=== PATIENT | female | born 1990 | race Caucasian/White ===

== ENCOUNTER 2019-02-16 17:25 | Emergency (ER) | payer OTHER ==
[~2019-02-16] VITALS: Ht 165.1 cm; Wt 63.0 kg
[2019-02-16 17:26] VITALS: BP 118/80
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
== END 2019-02-16 18:25 | disposition home or self-care (01) ==
LOC: ED 18:09
DX: H10.33 Unspecified acute conjunctivitis, bilateral (principal); F17.200 Nicotine dependence, unspecified, uncomplicated
CPT/HCPCS: 99283

== ENCOUNTER 2019-10-24 13:17 | Emergency (ER) | payer MEDICAID ==
[~2019-10-24] VITALS: Ht 162.6 cm; Wt 62.0 kg
[2019-10-24 13:28] VITALS: BP 100/62
--- NOTE | 2019-10-24 14:22 | NUR ---
NL X 1 @ [id number].
--- NOTE | 2019-10-24 14:30 | NUR ---
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
--- NOTE | 2019-10-24 14:31 | NUR ---
NOT IN LOBBY X 2 [phone], [phone]
== END 2019-10-24 14:46 | disposition left against medical advice (07) ==
LOC: ED 14:35
DX: N63.0 Unspecified lump in unspecified breast (principal); Z53.21 Procedure and treatment not carried out due to patient leaving prior to being seen by health care provider

== ENCOUNTER 2019-12-18 20:24 | Outpatient (CLI) | payer MEDICAID ==
[2019-12-18 21:15] VITALS: BP 113/64
== END 2019-12-18 21:40 | disposition home or self-care (01) ==
LOC: LDOP 20:24
PROVIDERS: ATTEND Obstetrics & Gynecology
DX: O26.899 Other specified pregnancy related conditions, unspecified trimester (principal)
CPT/HCPCS: 99211; G0463

== ENCOUNTER 2019-12-18 21:39 | Emergency (ER) | payer MEDICAID, OTHER ==
[~2019-12-18] VITALS: Ht 162.6 cm; Wt 67.0 kg
--- NOTE | 2019-12-18 22:04 | NUR ---
PT SITTING IN BED, NO SIGNS OF DISTRESS, RESPIRATIONS EVEN AND UNLABORED. ERP TO BEDSIDE. PT'S FATHER AT BEDSIDE.
--- NOTE | 2019-12-18 22:07 | NUR ---
PT AMBULATORY TO BATHROOM WITH A STEADY GAIT.
[2019-12-18 22:12] LABS: MICROSCOPIC NOT IND
--- NOTE | 2019-12-18 22:18 | NUR ---
PT TO IMAGING.
--- NOTE | 2019-12-18 22:23 | NUR ---
SUMMARY NOTE: THIS PT IS . PT STATES SHE'S TAKEN MULTIPLE TESTS AT HOME THAT HAVE ALL COME BACK POSITIVE, PT UNSURE OF FIRST DAY OF LMP. PT STATES SHE'S HAVING "CRAMPING/ PAIN" ON LEFT SIDE AROUND LEFT HIP AND TO LEFT LOWER BACK, FOR AN UNKNOWN AMOUNT OF TIME. PT DENIES FLANK PAIN ON PALPATION. PT STATES HER "BABY BUMP" MOVES TO RIGHT SIDE WHEN SHE STANDS. MINIMAL DEVIATION NOTED.
[2019-12-18 22:28] LABS: BASOPHILS # (AUTO) 0.04 x10^3/uL (0-0.1); BASOPHILS % (AUTO) 0 % (0-1); EOSINOPHILS % (AUTO) 1 % (1-7); LYMPHOCYTES # (AUTO) 3.03 x10^3/uL (1-3.4); LYMPHOCYTES % (AUTO) 29 % (22-44); MD NO; MEAN CORPUSCULAR HEMOGLOBIN 30.6 pg (27.0-34.8); MEAN CORPUSCULAR HGB CONC 33.6 g/dL (32.4-35.8); MEAN PLATELET VOLUME 11.7 fL (7.4-10.4); MONOCYTES # (AUTO) 0.61 x10^3/uL (0.2-0.8); MONOCYTES % (AUTO) 6 % (2-9); NEUTROPHILS # (AUTO) 6.88 x10^3/uL (1.8-6.8); NEUTROPHILS % (AUTO) 65 % (42-75); PLATELET COUNT 179 x10^3/uL (130-400); RED BLOOD COUNT 4.37 x10^6/uL (3.82-5.3); RED CELL DISTRIBUTION WIDTH 13.1 % (9.6-15.2)
[2019-12-18 22:39] VITALS: BP 102/62
[2019-12-18 22:43] LABS: ALANINE AMINOTRANSFERASE 41 U/L (12-78); ALBUMIN 3.6 g/dL (3.4-5.0); ANION GAP 6 mmol/L (5-15); CALCIUM 9.1 mg/dL (8.5-10.1); CHLORIDE 105 mmol/L (98-107)
[2019-12-18 23:02] LABS: ALKALINE PHOSPHATASE 95 U/L (45-117); BILIRUBIN,TOTAL 0.4 mg/dL (0.2-1.0); CREATININE 0.75 mg/dL (0.55-1.02)
--- NOTE | 2019-12-18 23:11 | NUR ---
ERP BACK TO BEDSIDE TO UPDATE PT ON POC.
== END 2019-12-18 23:27 | disposition home or self-care (01) ==
LOC: ED 22:39
DX: O20.0 Threatened abortion (principal); O99.331 Smoking (tobacco) complicating pregnancy, first trimester; F17.210 Nicotine dependence, cigarettes, uncomplicated; Z3A.01 Less than 8 weeks gestation of pregnancy
CPT/HCPCS: 36415; 76801; 80053; 81003; 84702; 85025; 86901; 99406

== ENCOUNTER 2020-07-01 17:30 | Outpatient (CLI) | payer MEDICAID ==
[~2020-07-01] VITALS: Ht 165.1 cm; Wt 81.8 kg
[2020-07-01] MEDS ORDERED: PREN1TAB10 PO (17:59)
[2020-07-01 18:00] VITALS: BP 116/67
[2020-07-01] MEDS ORDERED: LAMO50TA2 PO (18:00)
[2020-07-01] MEDS ORDERED: ZOLP10TA PO (18:00)
[2020-07-01] MEDS ORDERED: OMEP20TA62 PO (18:00)
[2020-07-01] MEDS ORDERED: SERT50TA PO (18:00)
[2020-07-01 18:31] LABS: MICROSCOPIC INDICATED
[2020-07-01 18:47] LABS: AMPHETAMINE SCREEN, URINE Negative (Negative); BARBITURATE SCREEN, URINE Negative (Negative); BENZODIAZEPINE SCREEN, URINE Negative (Negative); CANNABINOID SCREEN, URINE Negative (Negative); COCAINE SCREEN, URINE Negative (Negative); METHADONE SCREEN, URINE Negative (Negative); OPIATE SCREEN, URINE Negative (Negative)
== END 2020-07-01 19:13 | disposition home or self-care (01) ==
LOC: LDOP 17:30
PROVIDERS: ATTEND Obstetrics & Gynecology
DX: O26.893 Other specified pregnancy related conditions, third trimester (principal); R10.9 Unspecified abdominal pain; Z3A.35 35 weeks gestation of pregnancy
CPT/HCPCS: 59025; 80307; 81001; 84112; 87086